=== PATIENT | male | born 1960 | race Caucasian/White ===

== ENCOUNTER 2020-06-13 11:32 | Emergency (ER) | payer MEDICARE, MEDICAID ==
[~2020-06-13] VITALS: Ht 182.9 cm; Wt 95.3 kg
[~2020-06-13 11:32] MED LIST: NAPROXEN250 MG ORAL
[2020-06-13 11:54] VITALS: BP 130/80
[2020-06-13] MEDS ORDERED: Ketorolac 30mg Inj IM ONE (12:15)
[2020-06-13 12:35] VITALS: BP 130/80
--- NOTE | 2020-06-13 13:50 | Emergency Room Report ---
History of Present Illness General Chief Complaint: Back Pain-No Injury Source: Patient Present Illness HPI 59-year-old male presents with upper back pain. States he has had this pain for months now. Has been getting treatment for his neck issues. Has received cortisone shots as well. States he is received Toradol shots in the past for his upper back pain and works well. Pain is dull, 7 out of 10, nonradiating. Denies neck pain or neck stiffness. No other aggravating relieving factors. Denies any other associated symptoms Allergies: Coded Allergies: No Known Allergies (Unverified , 08/15/19) COVID-19 Screening Contact w/high risk pt: No Experienced COVID-19 symptoms?: No COVID-19 Testing performed LUBRICATOR GRANULATOR: Yes COVID-19 Screening: Negative COVID-19 COVID-19 Testing Source: unk Patient History Past Medical History: none Past Surgical History: none Pertinent Family History: none Social History: Denies: smoking, alcohol use, drug use Immunizations: UTD Reviewed Nursing Documentation: PMH: Agreed; PSxH: Agreed Nursing Documentation-PMH Past Medical History: No History, Except For Review of Systems All Other Systems: negative except mentioned in HPI Physical Exam Vital Signs Date Time Temp Pulse Resp B/P (MAP) Pulse Ox O2 Delivery O2 Flow Rate FiO2 06/13/20 11:38 98.1 86 18 130/80 (97) 95 Room Air Sp02 EP Interpretation: reviewed, normal General Appearance: no apparent distress, alert, GCS 15, non-toxic Head: normocephalic, atraumatic Eyes: bilateral eye normal inspection, bilateral eye PERRL ENT: hearing grossly normal, normal pharynx, no angioedema, normal voice Neck: full range of motion, supple/symm/no masses Respiratory: chest non-tender, lungs clear, normal breath sounds, speaking full sentences Cardiovascular #1: regular rate, rhythm, no edema Cardiovascular #2: 2+ carotid (R), 2+ carotid (L), 2+ radial (R), 2+ radial (L), 2+ dorsalis pedis (R), 2+ dorsalis pedis (L) Gastrointestinal: normal bowel sounds, non tender, soft, non-distended, no guarding, no rebound Rectal: deferred Genitourinary: normal inspection, no CVA tenderness Musculoskeletal: normal range of motion, gait/station normal, tender - Upper back paraspinal tenderness Neurologic: alert, motor strength/tone normal, oriented x3, sensory intact, responsive, speech normal Psychiatric: judgement/insight normal, memory normal, mood/affect normal, no suicidal/homicidal ideation Reflexes: 3+ bicep (R), 3+ bicep (L), 3+ tricep (R), 3+ tricep (L), 3+ knee (R), 3+ knee (L) Skin: no rash Lymphatic: no adenopathy Medical Decision Making Diagnostic Impression: Primary Impression: Upper back pain ER Course Hospital Course 59-year-old male presents with upper back pain Differential diagnoses include: pyelonephritis, kidney stone, muscle strain Clinical course Patient placed on stretcher. After initial history physical exam reveals a male in no acute distress. There is some paraspinal lumbar tenderness in the thoracic region. No midline tenderness. No neck stiffness. I ordered Toradol with pain improved. Discussed findings with patient. Safe for discharge close outpatient follow-up. He states he will follow-up with his PMD. Diagnosis - upper back pain Stable and discharged to home. Followup with PMD. Return to ED if symptoms recur or worsen Last Vital Signs Date Time Temp Pulse Resp B/P (MAP) Pulse Ox O2 Delivery O2 Flow Rate FiO2 06/13/20 12:35 98.1 89 18 130/80 95 Room Air Status: improved Disposition: HOME, SELF-CARE Condition: Stable Referrals: NON PHYSICIAN (PCP) Patient Instructions: Back Pain, Adult Yves Painting MD Jun 13, 2020 13:50
== END 2020-06-13 12:36 | disposition home or self-care (01) ==
LOC: EMR 12:20
DX: M54.6 Pain in thoracic spine (principal)
CPT/HCPCS: 96372; 99283; J1885